=== PATIENT | male | born 1940 | race Caucasian/White ===

== ENCOUNTER 2018-03-08 07:29 | Emergency (ER) | payer BC, MEDICARE ==
[2018-03-08 07:54] VITALS: BP 150/66
[2018-03-08] MEDS ORDERED: methylPREDNISolone 125 MG* 2 ML VIAL IM ONE (08:23)
[2018-03-08] MEDS ORDERED: Ipratropium 0.5MG/2.5ML NEB* 0.5 MG/2.5 ML NEB.SOLN INH ONE (08:23)
[2018-03-08] MEDS ORDERED: Albuterol 2.5 MG/3 ML NEB.SOL* (0.083%) INH ONE (08:23)
--- NOTE | 2018-03-08 08:38 | UC ---
Throat Pain/Nasal Gokul HPI - HPI Summary HPI Summary: pt has been having recurring sinus sx since october of 2017. he has not been able to completely recover though sx appear to have lessened from time to time. sx have been aggravted over the last [address], sinus congestion/pain/aguilar , couch(interferring with sleep and spasms that result in gagging) and sob. pt denies, confusion or unsteady gait. - History of Current Complaint Chief Complaint: UCRespiratory Stated Complaint: CHEST CONGESTION Time Seen by Provider: 03/08/18 08:00 Hx Obtained From: Patient, Family/Training Executive Onset/Duration: Gradual Onset, Lasting Weeks, Worse Since - 2 weeks ago Severity: Moderate Pain Intensity: 0 Associated Signs & Symptoms: Positive: Dysphagia - pain, Wheezing, Sinus Discomfort, Nasal Discharge. Negative: FB Sensation, Drooling, Fever, Vomiting , Rash - Allergies/Home Medications Allergies/Adverse Reactions: Allergies Allergy/AdvReac Type Severity Reaction Status Date / Time Adhesive Tape Allergy Rash Verified 03/08/18 07:47 morphine Allergy Nausea And Verified 03/08/18 07:47 Vomiting Penicillins Allergy Rash Verified 03/08/18 07:47 ranitidine Allergy Rash Verified 03/08/18 07:47 BEES Allergy THROAT Uncoded 03/08/18 07:47 CLOSED, SWELLS UP ENVIRONMENTAL/SEASONAL Allergy MILD Uncoded 03/08/18 07:47 HEADACHE, STUFFY flu serum Allergy myalgias Uncoded 03/08/18 07:47 PMH/Surg Hx/FS Hx/Imm Hx - Additional Past Medical History Additional PMH: bronchitis, pneumonia,memory loss, right foot numbness, herniated disc Endocrine History: Diabetes Cardiovascular History: Hypertension Respiratory History: Bronchitis, Pneumonia - Surgical History Surgical History: Yes Surgery Procedure, Year, and Place: GALL BLADDER REMOVAL, RIGHT KNEE ARTHOSCOPIY. APPENDECTOMY. Umbilical area hernia repair 2013 Dr. Loera [facility] - Social History Occupation: Retired Lives: With Family Alcohol Use: None Substance Use Type: None Smoking Status (MU): Former Smoker Type: Cigarettes Have You Smoked in the Last Year: No When Did the Patient Quit Smoking/Using Tobacco: 40 YEARS - Immunization History Most Recent Influenza Vaccination: has not had Most Recent Tetanus Shot: WITHIN 5 YEARS Review of Systems Constitutional: Other - malaise Eyes: Negative ENT: Sore Throat, Nasal Discharge, Sinus Congestion, Sinus Pain/Tenderness Respiratory: Shortness Of Breath, Cough Cardiovascular: Negative Gastrointestinal: Negative Genitourinary: Negative Musculoskeletal: Negative Neurological: Headache - sinus Psychological: Negative All Other Systems Reviewed And Are Negative: Yes Physical Exam Triage Information Reviewed: Yes Appearance: Well-Appearing, No Pain Distress, Obese Vital Signs: Initial Vital Signs Temp 98.9 F 03/08/18 07:41 Pulse 73 03/08/18 07:41 Resp 20 03/08/18 07:41 BP 150/66 03/08/18 07:41 Pulse Ox 99 03/08/18 07:41 Vital Signs Reviewed: Yes Eyes: Positive: Conjunctiva Clear. Negative: Discharge ENT: Positive: Hearing grossly normal, Pharyngeal erythema, Nasal congestion, Nasal drainage, TMs normal, Sinus tenderness. Negative: Tonsillar swelling, Tonsillar exudate, Trismus, Muffled voice, Hoarse voice Neck: Positive: Supple, Nontender Respiratory: Positive: No respiratory distress, No accessory muscle use, Wheezing - diffuse, all feilds Cardiovascular: Positive: RRR, Murmur:Sys:Grade _?_/ Musculoskeletal Exam: Normal Neurological: Positive: Alert, Muscle Tone Normal Psychological: Positive: Normal Response To Family, Age Appropriate Behavior Skin Exam: Normal Throat Pain/Nasal Course/Dx - Differential Dx/Diagnosis Differential Diagnosis/HQI/PQRI: Sinusitis, URI, Other - bronchospasm, pna, bronchitis Provider Diagnoses: sinusitis, bronchospasm Discharge - Sign-Out/Discharge Documenting (check all that apply): Discharge - Discharge Plan Condition: Stable Disposition: HOME Patient Education Materials: Sinusitis (ED), Bronchospasm (ED) Referrals: Brayden Ray MD [Primary Care Provider] - Additional Instructions: TRY USING THE NETTI POT IN THE MORNINGS DISCUSSED. YOU MUST ALWAYS USE CLEAN WATER. REMEMBER, POSTURE IS AN IMPORTANT FACTOR IN SINUS DRAINAGE. MOVE YOUR NECK, BREATHE. INHALED BRONCHODILATORS: You have received a prescription for an inhaled bronchodilator -- a medication which stimulates the airways in the lung to dilate. This improves the flow of air in asthma, bronchitis, and emphysema. These medicines have some similarity to adrenaline, and can cause similar side effects: shakiness, racing heart, and a sense of nervousness. These side effects decrease with time. Contact your doctor if these side effects are severe. Do not over-use the medicine. Too-frequent use of the inhaler may make it ineffective. Call your doctor if the inhaler is not controlling your symptoms at the prescribed doses. EXPECTORANT MEDICATION: WE SENT IN A SCRIPT FOR MUCINEX SO THAT IT IS EASIER FOR YOU TO PICK THE RIGHT MED AT THE PHARMACY. HOWEVER, YOU CAN ALSO GO TO THE [employer] [facility]OD STORE AND BUY PLAIN GUAIFENESIN WITHOU BINDERS OR FILLERS. An expectorant medicine has been prescribed. This type of drug makes mucous thinner, helping the sinuses, nose, and bronchial tubes to remain free of pus and mucous. Expectorants make a cough less severe and more comfortable, and help infected sinuses drain. In general, antihistamines defeat the purpose of the expectorant by making mucous thicker. They should be avoided unless specifically recommended by your physician. TESSALON PERLES: You have received a prescription for Tessalon Perles (benzonatate). This is a non-narcotic medicine for relief of cough. It usually works in about 15- 20 minutes and lasts around four hours. Tessalon Perles should be swallowed. They should not be chewed or dissolved in the mouth (this can produce temporary numbing of the mouth and choking can occur). If you develop any adverse effects such as wheezing, shortness of breath, hives, rash, itching, or lightheadedness, please return at once. CEPHALOSPORINS: An antibiotic of the cephalosporin class has been prescribed. This type of antibiotic covers a wide variety of infections, including those of the skin, lungs, middle ear, and urinary tract. This antibiotic is somewhat similar to the penicillin family. In rare cases , a person who is allergic to penicillin will also be allergic to this medication. If you have had a severe allergic reaction to penicillin, and have not taken this antibiotic since that time, notify your doctor. Antibiotics which cover many germs ("broad spectrum" antibiotics) are more likely to cause diarrhea or "yeast" infections. Women prone to vaginal yeast problems may suffer an attack after taking this antibiotic. In infants, oral thrush (white spots "stuck" on the cheek) or yeast diaper rash may result. See your doctor if these problems occur. Call the doctor at once if you develop hives, itching, shortness of breath , or lightheadedness. - Billing Disposition and Condition Condition: STABLE Disposition: HOME
== END 2018-03-08 09:59 | disposition home or self-care (01) ==
LOC: UCCORT 07:29
DX: J32.9 Chronic sinusitis, unspecified (principal); J98.01 Acute bronchospasm; E11.9 Type 2 diabetes mellitus without complications; Z79.84 Long term (current) use of oral hypoglycemic drugs; I10 Essential (primary) hypertension; Z88.5 Allergy status to narcotic agent; Z88.0 Allergy status to penicillin; Z88.7 Allergy status to serum and vaccine; Z91.048 Other nonmedicinal substance allergy status; Z87.891 Personal history of nicotine dependence
CPT/HCPCS: 96372; 99202; G0463; J2930

== ENCOUNTER 2019-08-15 14:59 | Observation (INO) | payer BC, MEDICARE ==
[2019-08-15] MEDS ORDERED: NS 0.9% 1000 ML** 1,000 ML IV ONE (15:01)
--- OUTSIDE RECORDS SUMMARY | 2019-08-15 15:15 | XMS REPORT | Continuity of Care Document ---
:1940 External Reference #:[id number] Author Name James Priest Care Team Providers Name Role Phone Brayden Ray MD Primary Care Physician Unavailable Payers Date Identification Numbers Payment Provider Subscriber Effective: 2013 Policy Number: [id number] [employer] Coleenjuan Walsh PayID: [id number] [address] [address] [place] [address] Effective: 2007 Policy Number: [id number] Medicare Alcon Walsh PayID: [id number] [address] [place] [address] Problems Active Problems Provider Date Memory impairment Ivanna Hernandez M.D. Onset: 09/01/2015 Feeling irritable Josef Holly M.D. Onset: 06/10/2018 Family History Date Family Member(s) Observation Comments General Liver Cancer General Lung Cancer General Cancer Father Liver Cancer Mother Lung Cancer First Sister Cancer Social History Type Date Description Comments Sex Unknown Marital Status Lives With Occupation Retired Tobacco Use Start: Unknown End: Former Cigarette Smoker 1 Unknown Pack Daily Smoking Status Reviewed: 06/23/19 Former Cigarette Smoker 1 Pack Daily ETOH Use Rarely consumes alcohol Tobacco Use Start: Unknown End: Patient is a former smoker Unknown Recreational Drug Use Denies Drug Use Exercise Type/Frequency Does not exercise Allergies, Adverse Reactions, Alerts Active Allergies Reaction Severity Comments Date Zantac 10/07/2014 Penicillin 10/07/2014 Flu Virus Vaccine 10/07/2014 Medications Active Medications SIG Qnty Indications Ordering Provider Date Sertraline HCL take two 180tabs Josef Holly, 11/01/2013 25mg Tablets tablets by M.D. mouth once daily Donepezil HCL 1 tab by 90tabs Josef Holly, 09/07/2013 10mg Tablets mouth every M.D. day Lisinopril 1 po qd Unknown 10mg Tablets Omeprazole 1 po every Unknown 20mg Capsules DR other day Metformin HCL ER (Osm) 1 po bid Unknown 1000mg Tablets ER 24HR Hydrochlorothiazide 1 po qd Unknown 25mg Tablets Colcrys As needed Unknown 0.6mg Tablets Tamsulosin HCL 2 by mouth Unknown 0.4mg Capsules every day Multivitamins 1 by mouth Unknown Capsules every day Acetaminophen Extra 2 tabs 3 Unknown Strength times daily 500mg Tablets as needed for pain Atorvastatin Calcium Digiovanna, 10mg MD Brayden Tablets Solifenacin Succinate Adonis Maldonado, 10mg M.D. Tablets History Medications Donepezil HCL 1-2 tabs by mouth 60tabs Ivanna Hernandez, 06/28/2013 - 5mg every day as M.D. 09/07/2013 Tablets directed Hydrocodone-Acetamino Unknown - phen 08/31/2015 5-325mg Tablets Oxybutynin Chloride 1 po qd Unknown - ER 03/14/2016 5mg Tablets ER 24HR Doxycycline Hyclate 1 po bid for 10 Unknown - days-has 5 days 06/07/2018 100mg Capsules left Vital Signs Date Vital Result Comment 06/23/2019 2:44pm Height 66 inches 5'6" Weight 292.00 lb Heart Rate 70 /min BP Systolic 112 mmHg BP Diastolic 64 mmHg BMI (Body Mass Index) 47.1 kg/m2 12/16/2018 3:00pm Height 66 inches 5'6" Weight 280.00 lb Heart Rate 62 /min BP Systolic Sitting 128 mmHg BP Diastolic Sitting 62 mmHg Respiratory Rate 14 /min BMI (Body Mass Index) 45.2 kg/m2 06/10/2018 12:51pm Height 66 inches 5'6" Weight 288.38 lb Heart Rate 80 /min BP Systolic Sitting 116 mmHg BP Diastolic Sitting 62 mmHg Respiratory Rate 16 /min O2 % BldC Oximetry 96 % BMI (Body Mass Index) 46.5 kg/m2 09/22/2017 3:59pm Height 66 inches 5'6" Weight 290.00 lb Heart Rate 68 /min BP Systolic 118 mmHg BP Diastolic 74 mmHg Respiratory Rate 16 /min O2 % BldC Oximetry 96 % BMI (Body Mass Index) 46.8 kg/m2 03/21/2017 3:13pm Height 66 inches 5'6" Heart Rate 64 /min BP Systolic 132 mmHg BP Diastolic 62 mmHg Respiratory Rate 16 /min Pain Level 0 O2 % BldC Oximetry 96 % 09/20/2016 12:31pm Height 66 inches 5'6" Weight 287.12 lb Heart Rate 83 /min BP Systolic 130 mmHg BP Diastolic 72 mmHg BMI (Body Mass Index) 46.3 kg/m2 03/15/2016 3:47pm Height 66 inches 5'6" Weight 292.00 lb Heart Rate 58 /min BP Systolic Sitting 130 mmHg BP Diastolic Sitting 78 mmHg Respiratory Rate 16 /min BMI (Body Mass Index) 47.1 kg/m2 09/01/2015 3:58pm Height 66 inches 5'6" Weight 304.00 lb Heart Rate 72 /min BP Systolic Sitting 132 mmHg BP Diastolic Sitting 80 mmHg Respiratory Rate 16 /min BMI (Body Mass Index) 49.1 kg/m2 10/07/2014 11:43am Height 66 inches 5'6" Weight 298.00 lb Heart Rate 62 /min BP Systolic Sitting 134 mmHg BP Diastolic Sitting 88 mmHg Respiratory Rate 16 /min BMI (Body Mass Index) 48.1 kg/m2 Results Test Date Facility Test Result H/L Range Note Syphilis 06/04/2013 [facility] Syphilis IgG Nonreactive Nonreactive [address] [place] [address] [phone] RPR TNP Nonreactive RPR Titer TNP Pediatric/Maternal NO 1 Warning: A positive result is not useful for establishing a diagnosis of syphilis. In most situations, such a result may reflect a prior treated infection; a negative result can exclude a diagnosis of syphilis except for incubating or early primary disease. Procedures Date Code Description Status 06/04/2013 65433 EEG Recording Awake & Drowsy Completed Encounters Type Date Location Provider Dx Diagnosis Office Visit 12/16/2018 Maren Holly, R41.3 Other amnesia 3:00p [facility] R45.4 Irritability and anger Office Visit 06/10/2018 Maren Holly R41.3 Other amnesia 1:00p [facility] R45.4 Irritability and anger Office Visit 09/22/2017 3:45p [place]/Jalen Breaux R41.3 Other amnesia [facility] R45.4 Irritability and anger Office Visit 03/21/2017 3:15p [facility]/Jalen Breaux R41.3 Other amnesia [facility] R45.4 Irritability and anger Office Visit 09/20/2016 12:30p [facility]/Jalen Breaux R41.3 Other amnesia [facility] Office Visit 03/15/2016 3:45p [facility]/Jalen Breaux R41.3 Other amnesia [facility] F41.9 Anxiety disorder, unspecified Office Visit 09/01/2015 [facility]Jalen Breaux R41.3 Other amnesia 4:00p [facility] Office Visit 10/07/2014 [facility]/Jalen Breaux 780.93 Memory Loss 11:45a [facility] 300.00 Anxiety State Unspec Office Visit 02/28/2014 3:30p [facility]/Jalen Breaux 780.93 Memory Loss [facility] 300.00 Anxiety State Unspec Office Visit 11/01/2013 3:15p [facility]/Jalen Breaux 780.93 Memory Loss [facility] 780.57 Unspecified Sleep Apnea 782.0 Skin Sensation Disturbance 300.00 Anxiety State Unspec Office Visit 06/28/2013 3:15p [facility]/Jalen Breaux 780.93 Memory Loss [facility] Office Visit 05/31/2013 9:00a [facility]/Jalen Breaux 780.93 Memory Loss [facility] 780.57 Unspecified Sleep Apnea Plan of Treatment Future Appointment(s):12/29/2019 2:30 pm - Carlos Rush N.P[facility] at [facility]06/23/2019 - Josef Holly M.D.R41.3 Other amnesiaFollow up:6 months ok with Destin.4 Irritability and anger
--- NOTE | 2019-08-15 15:23 | ED ---
Neurological HPI - HPI Summary HPI Summary: This pt is a 79 Y/O M brought in by EMS to [facility] for neurological deficits that occurred at 1430. He states that his left side became weak and he had tingling all the way down. He denies any numbness on his L side. He states that he doesn t remember what happened prior to arrival at [facility]. His states that he was carrying groceries inside and went to sit down on his recliner. She states that she found him sitting in the chair with his tongue out and had L sided facial droop with his body shaking. She also states that he was unconscious and was unable to be woken. His states that this is his second episode of neurological deficits. He has a PMHx of HTN and DM. - History of Current Complaint Stated Complaint: POSS STROKE PER EMS Time Seen by Provider: 08/15/19 15:01 Hx Obtained From: Patient, Family/Speech Teacher - Onset/Duration: Sudden Onset, Started hours ago - 1, Resolved Timing: Constant Current Severity: None Seizure Severity: Moderate Number of Seizures: 1 - per Neurological Deficit Location: Facial - R sided, RUE, RLE Aggravating: Nothing Alleviating: Nothing Associated Signs and Symptoms: Positive: Negative - chills, Weakness - L sided, Loss of Consciousness - per , Seizure - per , AMS, Impaired Speech. Negative: Nausea/Vomiting, Fever, Chest Pain, Shortness of Breath - Allergy/Home Medications Allergies/Adverse Reactions: Allergies Allergy/AdvReac Type Severity Reaction Status Date / Time Adhesive Tape Allergy Rash Verified 03/08/18 07:47 morphine Allergy Nausea And Verified 03/08/18 07:47 Vomiting Penicillins Allergy Rash Verified 03/08/18 07:47 ranitidine Allergy Rash Verified 03/08/18 07:47 BEES Allergy THROAT Uncoded 03/08/18 07:47 CLOSED, SWELLS UP ENVIRONMENTAL/SEASONAL Allergy MILD Uncoded 03/08/18 07:47 HEADACHE, STUFFY flu serum Allergy myalgias Uncoded 03/08/18 07:47 Home Medications: Home Medications Atorvastatin* [Lipitor*] 10 mg PO 1700 08/15/19 [History Confirmed 08/15/19] Tamsulosin CAP* [Flomax CAP*] 0.4 mg PO DAILY 08/15/19 [History Confirmed ] PMH/Surg Hx/FS Hx/Imm Hx Previously Healthy: Yes Endocrine/Hematology History: Reports: Hx Diabetes Cardiovascular History: Reports: Hx Hypertension, Other Cardiovascular Problems/ Disorders - mitral valve disorder GI History: Reports: Other GI Disorders - BENIGN NEOPLASM OF COLON - Surgical History Surgical History: Yes Surgery Procedure, Year, and Place: GALL BLADDER REMOVAL, RIGHT KNEE ARTHOSCOPIY. APPENDECTOMY. Umbilical area hernia repair 2013 Dr. Loera [facility] - Immunization History Date of Tetanus Vaccine: UTD Date of Influenza Vaccine: UTD Immunizations Up to Date: Yes Infectious Disease History: Reports: Hx Shingles Denies: Traveled Outside the [place] in Last 30 Days - Family History Known Family History: Positive: Renal Disease, Other - CAas - Social History Occupation: Retired Lives: With Family Alcohol Use: None Hx Substance Use: No Substance Use Type: Reports: None Hx Tobacco Use: Yes Smoking Status (MU): Former Smoker Type: Cigarettes Amount Used/How Often: 1/2 PPD Length of Time of Smoking/Using Tobacco: Quit 40 Years ago Have You Smoked in the Last Year: No Household Exposure: No Review of Systems Negative: Fever, Chills Negative: Chest Pain Negative: Shortness Of Breath Negative: Vomiting, Nausea Neurological: Other - R sided facial droop Positive: Weakness - R sided , Slurred Speech All Other Systems Reviewed And Are Negative: Yes Physical Exam - Summary Physical Exam Summary: General: Well-developed, Well-nourished male. No acute distress. HEENT: Normocephalic, Atraumatic. Eyes: Conjuctiva normal, PERRL. Ears: TMs within normal limits. Nares: (-) discharge, (-) erythema. Oropharynx: Clear, mucous membranes moist, (-) exudates. Neck: Soft, FROM, (-) lymphadenopathy, (-) thyromegaly, (-) JVD. Cardiovascular: Normal sinus rhythm, (-) murmur. Lungs: Clear to auscultation bilaterally (-) wheezes, (-) rales, (-) rhonchi. Abdomen: Soft, non-tender, non-distended, (-) organomegaly, normal bowel sounds. Back: (-) CVA tenderness Extremities: No edema. Skin: Warm, dry, (-) rash. Neuro: Alert and oriented x3, R sided facial droop Psychiatric: Mood normal, affect normal. NIH: 0 GCS: 15 Triage Information Reviewed: Yes Vital Signs Reviewed: Yes - [place] Coma Scale Best Eye Response: 4 - Spontaneous Best Motor Response: 6 - Obeys Commands Best Verbal Response: 5 - Oriented Coma Scale Total: 15 Diagnostics - Laboratory Result Diagrams: 08/15/19 15:30 08/15/19 15:30 Lab Statement: Any lab studies that have been ordered have been reviewed, and results considered in the medical decision making process. - CT Brain CT CT Interpretation Completed By: Radiologist Summary of CT Findings: 1. No acute intracranial abnormality by CT. 2. Mild chronic small vessel ischemic disease is likely. ED physician has reviewed this report. - EKG 1513 Cardiac Rate: NL - 77 BPM EKG Rhythm: Sinus Rhythm ST Segment: Normal Ectopy: None Summary of EKG Findings: EKG at 1513 reveals normal sinus rhythm with rate of 77 BPM, no acute changes, no ischemic changes. This EKG was reviewed and interpreted by Dr. Waldron at 1515 08/15/19. NIH Scale - NIH Scale Level of Consciousness: Alert/Keenly Responsive Ask Patient the Month and His/Her Age: Both Correct Ask Pt to Open/Close Eyes and Unit Operator/Release Non-Paretic Hand: Both Correctly Best Gaze (Only Horizontal Eye Movement): Normal Visual Field Testing: No Visual Loss Facial Paresis-Pt to Smile & Close Eyes or Grimace Symmetry: Normal/Symmetrical Motor Function - Right Arm: No Drift-Holds 10 Seconds Motor Function - Left Arm: No Drift-Holds 10 Seconds Motor Function - Right Leg: No Drift-Holds 10 Seconds Motor Function - Left Leg: No Drift-Holds 10 Seconds Limb Ataxia-Must be out of Proportion to Weakness Present: Absent Sensory (Use Pinprick to Test Arms/Legs/Trunk/Face): Normal Best Language (Describe Picture, Name Items): No Aphasia Dysarthria (Read Several Words): Normal Extinction and Inattention: No Abnormality Total Score: 0 Course/Dx - Course Course Of Treatment: This pt is a 79 Y/O M brought in by EMS to [facility] for neurological deficits that occurred at 1430. He states that his Right side became weak and he had tingling all the way down. He denies any numbness on his L side. He states that he doesnt remember what happened prior to arrival at [facility]. His states that he was carrying groceries inside and went to sit down on his recliner. His PE found a slight R sided facial droop and his NIH stoke scale was 0. His Brain CT found the followin. No acute intracranial abnormality by CT. 2. Mild chronic small vessel ischemic disease is likely. EKG at 1513 reveals normal sinus rhythm with rate of 77 BPM, no acute changes, no ischemic changes. Andre neurologist, was consulted at 1534 and recommended admitting the pt for further investigations. He also recomended a Head/Neck CTA and to start or cintue the following medications as of today: Plavix 300 mg, after today it will be 75 mg a day for 30 days, ASA 81 mgs, and lipitor 40 mgs. Pt was accepted to [facility] for further investigations by Dr. De Santiago, Hospitalist, at 1613. - Diagnoses Provider Diagnoses: TIA (transient ischemic attack) - Physician Notifications Discussed Care Of Patient With: Barber De Santiago Time Discussed With Above Provider: 16:09 Instructed by Provider To: Admit As Inpatient Admit/Transition Orders Completed By ED Provider: Yes - Critical Care Time Critical Care Time: 30-74 min Discharge ED - Sign-Out/Discharge Documenting (check all that apply): Patient Departure - admitted Patient Received Moderate/Deep Sedation with Procedure: No - Discharge Plan Condition: Stable Disposition: ADMITTED TO [facility] - Billing Disposition and Condition Condition: STABLE Disposition: Admitted to [facility] - Attestation Statements Document Initiated by Kiko: Yes Documenting Scribe: Bao Gao Provider For Whom Scribe is Documenting (Include Credential): Crystal Waldron MD Scribe Attestation: Bao Alves, scribed for Crystal Waldron MD on 08/15/19 at 1910. Scribe Documentation Reviewed: Yes Provider Attestation: The documentation as recorded by the Bao cobb accurately reflects the service I personally performed and the decisions made by , Crystal Waldron MD Status of Scribe Document: Viewed Consult Consult: Andre neurologist, was consulted at 1534 and recommended admitting the pt for further investigations. He also recomended a Head/Neck CTA and to start or cintue the following medications as of today: Plavix 300 mg, after today it will be 75 mg a day for 30 days, ASA 81 mgs, and lipitor 40 mgs.
[2019-08-15 15:40] LABS: ABS Basophils 0.1 10^3/ul (0-0.2); ABS Eosinophils 0.2 10^3/ul (0-0.6); ABS Lymphocytes 1.3 10^3/ul (1.0-4.8); ABS Monocytes 0.8 10^3/ul (0-0.8); ABS Neutrophils 6.6 10^3/ul (1.5-7.7); Eosinophil % 1.7 %; Hematocrit 30 % (42-52); Hemoglobin 9.9 g/dL (14.0-18.0); Lymphocyte % 14.8 %; Mean Corpuscular HGB Conc 33 g/dL (31-36); Mean Corpuscular Hemoglobin 27 pg (27-31); Mean Corpuscular Volume 83 fL (80-94); Platelet Count 177 10^3/uL (150-450); Red Blood Count 3.64 10^6 /uL (4.18-5.48); Red Cell Distribution Width 15 % (10-15)
[2019-08-15 15:47] LABS: Activated Partial Thrombo Time 31.2 seconds (26.0-38.0); INR 0.99 (0.82-1.09)
[2019-08-15 16:02] LABS: Albumin 3.8 g/dL (3.2-5.2); Albumin/Globulin Ratio 1.5 (1-3); BUN/Creatinine Ratio 19.4 (8-20); Calcium 8.8 mg/dL (8.6-10.3); EGFR African American 38.1 (>60); EGFR Non-African American 31.5 (>60); Globulin 2.6 g/dL (2-4); HDL Cholesterol 23.3 mg/dL; Potassium 4.4 mmol/L (3.5-5.0); Total Bilirubin 0.4 mg/dL (0.2-1.0); Total Protein 6.4 g/dL (6.4-8.9)
[2019-08-15 16:03] LABS: Troponin I 0.03 ng/mL (<0.04)
[2019-08-15] MEDS ORDERED: Iodixanol* (CONTRAST) 320 MG/ML 100 ML SDV IV ONE (16:06)
[2019-08-15] MEDS ORDERED: Acetaminophen TAB* 325 MG PO PRN (17:39)
[2019-08-15] MEDS ORDERED: NS 0.9% 1000 ML** 1,000 ML IV SCH (17:45)
[2019-08-15] MEDS ORDERED: Clopidogrel TAB* 300 MG PO ONE (17:49)
[2019-08-15] MEDS ORDERED: Albuterol HFA INHALER* 8 gm MDI INH PRN (17:53)
[2019-08-15] MEDS ORDERED: Dextrose 50% VIAL 50 ml IV PUSH PRN (18:33)
--- NOTE | 2019-08-15 21:38 | HP ---
CC: Dr. Brayden Baltazar; Dr. Josef Holly * HISTORY AND PHYSICAL: DATE OF ADMISSION: 08/15/19 PRIMARY CARE PROVIDER: Brayden Baltazar MD NEUROLOGIST: Josef Holly MD ATTENDING PHYSICIAN: Barber De Santiago MD * (DICTATED BY AUBRIE DAY NP) CHIEF COMPLAINT: Right-sided facial droop. HISTORY OF PRESENT ILLNESS: Mr. Tena is a 79-year-old male with past medical history of diabetes, Alzheimer's, obstructive sleep apnea, hypertension, and hyperlipidemia, who presented to the emergency room today after an acute episode of a right-sided facial droop. Most of the history is obtained from the patient's as the patient is quite forgetful and did not have good recollection of events from today. She reports that they were carrying groceries into the house. She had just carried a bag in when she went out to grab another bag and when she came inside, he was noted to be sitting in the chair. She noted an obvious right-sided facial droop and she reports that his left leg had violent tremors. She attempted to wake the patient, but was unable to wake him and therefore called 911. When EMS arrived, the patient became more arousable. The patient's son also notes that he appeared very pale during this entire episode. The patient's reports that couple days ago, the patient reported feeling "funny all over." It is not entirely clear how long this lasted, though it sounds as though it lasted hours and potentially the entire day, although there were no obvious neurological deficits during that time. At this point, the patient does not remember any of the events from today. His only complaint at this point is tingling in his left hand and a 7/ 10 headache, which he refers to as mild. In the emergency room, a code li was called and the patient was taken for a stat CT, which was unremarkable. His symptoms were noted to be resolved upon arrival to the emergency room. Telestroke was consulted and Dr. Powell recommended admitting the patient for further evaluation. He additionally recommended a head and neck CTA, a loading dose of Plavix with daily Plavix thereafter and continuing aspirin and atorvastatin. The patient at that point was noted to have an NIH stroke scale of 0. Because of the concern for TIA, the hospitalist service was asked to evaluate for admission. PAST MEDICAL HISTORY: 1. Diabetes mellitus, type 2. 2. Alzheimer's. 3. Obstructive sleep apnea, on CPAP. 4. Hypertension. 5. GERD. 6. Anxiety. 7. Depression. 8. Hyperlipidemia. PAST SURGICAL HISTORY: 1. Cholecystectomy. 2. Knee arthroscopy. 3. Appendectomy. 4. Bilateral cataract removal. 5. Umbilical hernia repair. HOME MEDICATIONS: 1. Albuterol MDI 2 puffs q.4 hours p.r.n. shortness of breath, wheezing. 2. Aspirin 81 mg p.o. daily. 3. Atorvastatin 10 mg p.o. daily. 4. Hydrochlorothiazide 25 mg p.o. daily. 5. Lisinopril 10 mg p.o. daily. 6. Metformin 1000 mg p.o. daily. 7. Omeprazole 20 mg p.o. daily. 8. Sertraline 25 to 50 mg daily. 9. Tamsulosin 0.4 mg p.o. daily. ALLERGIES: MORPHINE, PENICILLIN, RANITIDINE, FLU VACCINE, and ADHESIVE TAPE. FAMILY HISTORY: The patient's reports that the patient had an aunt who had multiple strokes. Otherwise, there is a very significant family history of cancer. SOCIAL HISTORY: The patient denies any tobacco, alcohol, or recreational drug use. He is retired and lives at home with his , Randi. The patient states that his , Randi, and his son, Damian, will be his surrogate decision makers in the event he is unable to make his own decisions. REVIEW OF SYSTEMS: An 11-point review of systems was performed and all the pertinent positive and negative findings are in the HPI. All other systems are negative. PHYSICAL EXAMINATION GENERAL: Mallika is a well-developed, well-nourished, obese white male, lying in bed, in no acute distress, he appears his stated age. VITAL SIGNS: Temp 99.4, heart rate 71, respiratory rate 24, oxygen saturation 95% on room air, and blood pressure 128/63. HEENT: Head is atraumatic, normocephalic. Visual huntley are grossly intact. Pupils are equal and round. Extraocular movements are intact. Mucous membranes are moist. NECK: Full range of motion. Trachea midline. RESPIRATORY: Symmetrical chest expansion. No chest wall deformities. Lungs clear to auscultation throughout. No rhonchi, wheezes, or rubs. CARDIOVASCULAR: Regular rate and rhythm. S1, S2 present. There is a grade 3/ 6 systolic murmur. No JVD. ABDOMEN: Soft, nontender to palpation. Bowel sounds are normoactive throughout. EXTREMITIES: Skin is warm and smooth bilaterally. No edema. No clubbing or cyanosis. Pedal pulses 2+ bilaterally. NEURO: Awake, alert, and oriented to self and place. He is very forgetful. Cranial nerves II through XII grossly intact. Moves all extremities. Motor strength is 5/5 in right upper and lower extremities and 4/5 in left upper and lower extremities. There is decreased sensation to the left hand. DIAGNOSTIC STUDIES AND LABORATORY DATA: WBC 9.0, RBC 3.64, hemoglobin 9.9, hematocrit 30, platelets 177. INR 0.99. Sodium 137, potassium 4.4, chloride 105, carbon dioxide 25, BUN 40, creatinine 2.06, glucose 180. Lactic acid 1.8. Troponin 0.03. Triglycerides 119, total cholesterol 88, LDL 41, HDL 23. Brain CT reads as no acute intracranial abnormality by CT, mild chronic small vessel ischemic disease is likely. Chest x-ray reads as no evidence for acute disease. EKG shows normal sinus rhythm with a rate of 77, QTc 435. This EKG appears consistent with previous EKG on file from 2013. Head CTA reads as a nonocclusive calcified thromboembolus seen in the superior M2 division of the right MCA (this would not account for right-sided facial droop and is likely chronic). No acute occlusive disease, aneurysm, or stenosis in the brain. Intracranial atherosclerotic disease. No acute occlusive disease or significant stenosis in the neck. Mixed, soft and calcified atherosclerotic plaque at the origin of the left vertebral artery. ASSESSMENT AND PLAN: Mr. Tena is a 79-year-old male with past medical history of diabetes, Alzheimer's, sleep apnea, hypertension, hyperlipidemia, who presents to the emergency room today with reports of right-sided neurological deficits and will be admitted observation for: 1. Transient ischemic attack versus seizure. The patient's right-sided facial droop has resolved upon arrival to the emergency room, so this does not consistent with a TIA, although this does not exactly explain the left leg tremors and unresponsiveness during the episode and those are more concerning for seizure activity. Additionally, the patient is now noted to have some left- sided deficits. It is unclear the onset of these symptoms. Regardless, the patient will be worked up for TIA and seizure. I did speak with Dr. Rodriguez, who agreed with giving the patient a loading dose of Plavix now and continuing the patient on dual antiplatelet therapy starting tomorrow with aspirin and Plavix. He additionally recommended an MRI of the brain tomorrow and EEG and a transthoracic echocardiogram. The patient is normotensive at this point, so Dr. Rodriguez did advise that his antihypertensive agents should be held. I will repeat a fasting lipid panel in the morning. I have additionally ordered neuro checks every 4 hours and telemetry monitoring. 2. Acute kidney injury. The patient's creatinine is elevated at 2.06. It is unclear if this is his baseline as the only previous creatinine on records is from 2012 and that was normal at 1.2. It is possible that he may be slightly dry, so I will give him gentle IV hydration and recheck a BMP in the morning. We can attempt to get records tomorrow to figure out his baseline creatinine if necessary. 3. Diabetes. I have ordered an add-on A1c, which is pending at this point. I will hold the patient's metformin and we will check fingersticks a.c., h.s. and give sliding scale lispro as necessary. 4. Obstructive sleep apnea. The patient can use a hospital CPAP, which I have ordered. 5. Hypertension. As mentioned above, the patient is normotensive at this point and I will hold his lisinopril and hydrochlorothiazide to allow for permissive hypertension. 6. Gastroesophageal reflux disease. Continue omeprazole or formulary alternative. 7. Anxiety and depression. Continue sertraline. 8. Hyperlipidemia. Lipid panel shows good control. I will continue atorvastatin at an increased dose of 40 mg instead of 10 per recommendations from telestroke. 9. Alzheimer's. Supportive care. 10. FEN. Again, I will rehydrate the patient with IV fluids as he may be slightly dry at this point. He does not require any electrolyte repletion. I have ordered a heart-healthy diet. 11. Code status. The patient will be a full code. 12. DVT prophylaxis. According to the DVT Risk Assessment, the patient scores a 4 making him high risk. I have ordered subcu heparin. TIME SPENT: Approximately 65 minutes was spent on this admission, greater than half of that time spent [id number] with the patient and his family obtaining my history, performing my physical examination, reviewing the plan of care. This case has been reviewed with my attending, Dr. De Santiago, who is in agreement with the plan of care. AUBRIE DAY, CARPENTRY FOREMAN [id number]/[facility]PS #: [id number] SANGEETHA
[2019-08-15] MEDS: Insulin LISPRO* 1 UNITS UNIT SUBCUT SCH (22:12)
[2019-08-15] MEDS: Heparin VIAL(*) 5000 UNITS/ML VIAL (FIVE THOUSAND) SUBCUT SCH (22:13)
[2019-08-16] MEDS: Heparin VIAL(*) 5000 UNITS/ML VIAL (FIVE THOUSAND) SUBCUT SCH ×3 (06:03→21:44)
[2019-08-16 06:20] LABS: ABS Basophils 0.1 10^3/ul (0-0.2); ABS Eosinophils 0.1 10^3/ul (0-0.6); ABS Lymphocytes 1.6 10^3/ul (1.0-4.8); ABS Monocytes 0.8 10^3/ul (0-0.8); ABS Neutrophils 4.3 10^3/ul (1.5-7.7); Eosinophil % 2.1 %; Hematocrit 29 % (42-52); Hemoglobin 9.5 g/dL (14.0-18.0); Lymphocyte % 23.4 %; Mean Corpuscular HGB Conc 33 g/dL (31-36); Mean Corpuscular Hemoglobin 27 pg (27-31); Mean Corpuscular Volume 83 fL (80-94); Mean Platelet Volume 8.8 fL (7.4-10.4); Platelet Count 181 10^3/uL (150-450); Red Cell Distribution Width 15 % (10-15); White Blood Count 6.9 10^3/uL (3.5-10.8)
[2019-08-16 06:37] LABS: BUN/Creatinine Ratio 20.2 (8-20); Calcium 8.7 mg/dL (8.6-10.3); EGFR African American 42.3 (>60); HDL Cholesterol 21.9 mg/dL; Potassium 4.2 mmol/L (3.5-5.0)
[2019-08-16] MEDS: Insulin LISPRO* 1 UNITS UNIT SUBCUT SCH ×4 (09:29→21:44)
[2019-08-16] MEDS: Aspirin EC TAB* 81 MG TAB.EC PO SCH (09:30)
[2019-08-16] MEDS: Sertraline* 25 MG TAB PO SCH (09:30)
[2019-08-16] MEDS: Tamsulosin CAP* 0.4 MG PO SCH (09:30)
[2019-08-16] MEDS: Pantoprazole TAB * 40 MG TAB PO SCH (09:30)
[2019-08-16] MEDS: Clopidogrel TAB* 75 MG PO SCH (09:31)
[2019-08-16] MEDS ORDERED: Donepezil TAB* 5 MG PO SCH (11:00)
[2019-08-16] MEDS ORDERED: Perflutren Lipid Microsphere* 3 ML VIAL ONE (13:13)
--- NOTE | 2019-08-16 15:18 | ECHO ---
*[facility]* [place] [address] Fax #: [phone] Transthoracic Echocardiogram Patient: Alcon Walsh : 1940 Study Date: 08/16/2019 Age: 79 Gender: M HR: 85 bpm Height: 66 in /167.6 cm BSA: 2.39 m^2 Weight: 303.4 lb /137.9 kg BMI: 49.1 kg/m^2 *Hand Cigar Maker: * Karyna Lee RDCS RN *Referring Physician: * Desire Donnelly *Reading Physician: * Roman Ward MD Indications: TIA. Murmur. History: Murmur. Alzheimer's disease. DYLAN on CPAP. Risk factors: Hypertension. Diabetes mellitus. Morbidly obese. Dyslipidemia. Conclusions Summary: - Left ventricle: The cavity size is normal. Wall thickness is mildly to moderately increased. Systolic function is normal. The estimated ejection fraction is 60-65%. Wall motion is normal; there are no regional wall motion abnormalities. - Right ventricle: Systolic function is normal. - Atrial septum: The image quality was suboptimal and the bubble study was non-diagnostic. Images 109 and 111. A patent foramen ovale cannot be excluded. - Aortic valve: The leaflets are moderately thickened with decreased excursion. The findings are consistent with moderate stenosis. There is no significant regurgitation. The peak systolic velocity is 3.6 m/sec. The mean systolic gradient is 34.0 mm Hg. The peak systolic gradient is 51.0 mm Hg. The LVOT to aortic valve VTI ratio is 0.35. The valve area by the velocity-time integral method is 1.09 cm^2. The valve area by the peak velocity method is 1.05 cm^2. - Tricuspid valve: There is no significant regurgitation. - Pericardium, extracardiac: There is no pericardial effusion. - Pulmonary arteries: Systolic pressure can not be accurately estimated. - Study data: No prior study is available for comparison. Study data: Transthoracic echocardiogram. Procedure: Transthoracic echocardiography was performed. Image quality was fair. The study was technically limited due to body habitus. Intravenous agitated saline was administered. A bubble study was performed on Images 109 and 111. A total of 3 ml of Definity was given IV to enhance endocardial border definition. Complete 2D, spectral Doppler, and color flow Doppler. Location: Bedside. Patient status: Observation. Patient room number: 445-01. No prior study is available for comparison. Rhythm: Normal sinus rhythm. Findings Left ventricle: The cavity size is normal. Wall thickness is mildly to moderately increased. Systolic function is normal. The estimated ejection fraction is 60-65%. Wall motion is normal; there are no regional wall motion abnormalities. Features are consistent with a pseudonormal left ventricular filling pattern, with concomitant abnormal relaxation and increased filling pressure (grade 2 diastolic dysfunction). Right ventricle: The cavity size is normal. Systolic function is normal. Left atrium: The atrium is moderately to severely dilated. Right atrium: The atrium is moderately dilated. Atrial septum: Not well visualized. The image quality was suboptimal and the bubble study was non-diagnostic. Images 109 and 111. A patent foramen ovale cannot be excluded. Mitral valve: The leaflets are mildly thickened. There is no evidence of stenosis. There is trace regurgitation. Aortic valve: Not well visualized. The leaflets are moderately thickened with decreased excursion. The findings are consistent with moderate stenosis. There is no significant regurgitation. Tricuspid valve: Not well visualized. There is no significant regurgitation. Pulmonic valve: Not well visualized. There is trace regurgitation. Aorta: Aortic root: The aortic root is not dilated. Ascending aorta: The ascending aorta is not dilated. Aortic arch: The aortic arch is not visualized. Pericardium: There is no pericardial effusion. Pulmonary arteries: Not well visualized. Systolic pressure can not be accurately estimated. Systemic veins: Inferior vena cava: The vessel is normal in size. There is (< 50%) respiratory change in the IVC dimension. Measurements Left ventricle Value Ref Right atrium Value Ref TRACI, LAX 4.7 cm 4.2 - 5.8 ML dim, ES, A4C (H) 4.7 cm 2.6 - 4.4 ESD, LAX 3.3 cm 2.5 - 4.0 SI dim, ES, A4C (H) 5.8 cm 3.4 - 5.3 FS, LAX 30 % 25 - 43 Estimated RAP 8 mm Hg --------- PW, ED (H) 1.3 cm 0.6 - 1.0 IVS/PW, ED 0.98 Aortic valve Value Ref E', lat randell, TDI (L) 8.1 cm/sec >=10.0 Randell diam, ED 2.0 cm --- ------ E/e', lat randell, 19 Peak v, S 3.6 m/sec ------ --- TDI VTI, S 71.0 cm --------- E', med randell, TDI 7.7 cm/sec >=7.0 Mean grad, S 34.0 mm Hg --- ------ E/e', med randlel, 20 Peak grad, S 51.0 mm Hg ------ --- TDI LVOT/AV, VTI ratio 0.35 --------- E', avg, TDI 7.9 cm/sec HERMINIA, VTI 1.09 cm^2 ------ --- E/e', avg, TDI (H) 19 <=14 HERMINIA, Vmax 1.05 cm^2 --- ------ LVOT Value Ref Mitral valve Value Ref Diam, S 2.00 cm Peak E 1.53 m/sec --------- Area 3.1 cm^2 Peak A 1.02 m/sec --------- Peak tanna, S 1.2 m/sec Decel time 175 ms --------- VTI, S 24.7 cm PHT 73 ms --------- Peak grad, S 6 mm Hg Mean grad, D 4.0 mm Hg --------- Mean grad, S 4 mm Hg Peak grad, D 10.0 mm Hg --------- SV 78 ml Peak E/A ratio 1.5 --------- SV/bsa 33 ml/m^2 MVA, PHT 3.0 cm^2 --------- Ventricular septum Value Ref Pulmonic valve Value Ref IVS, ED (H) 1.3 cm 0.6 - 1.0 Peak v, S 1.1 m/sec --------- Peak grad, S 5.0 mm Hg --------- Right ventricle Value Ref TRACI minor ax, 3.2 cm 1.9 - 3.5 Aortic root Value Ref A4C mid Root diam 2.7 cm <4.4 Left atrium Value Ref Ascending aorta Value Ref AP dim, ES (H) 4.40 cm 3.00 - AAo AP diam, S 3.2 cm --------- 4.00 ML dim, A4C 4.8 cm Inferior vena cava Value Ref SI dim, A4C 6.2 cm Diam 2.0 cm --------- Vol/bsa, ES, 1-p (H) 48 ml/m^2 12 - 37 A4C Vol/bsa, ES, A/L (H) 54 ml/m^2 16 - 34 Legend: (L) and (H) quincy values outside specified reference range. Prepared and electronically signed by Roman Ward MD 08/16/2019 15:17
--- NOTE | 2019-08-16 16:53 | CONS ---
CC: Dr. Brayden Baltazar; Dr. Josef Holly * NEUROLOGY CONSULTATION: DATE OF CONSULT: 08/16/19 LOCATION: He in an inpatient in room 445. REFERRING PROVIDER: Desire Donnelly NP CHIEF COMPLAINT: Episode of unresponsiveness. HISTORY OF PRESENT ILLNESS: Alcon Tena is a 79-year-old right-handed man who was at home with his yesterday after bringing in some groceries, seated in a chair when he suddenly was unresponsive. She had been out of the room for just a few minutes and when she returned, he was "white as a sheet" and clammy. His tongue was hanging out and he was limp. She called 911. When the ambulance attendants got there and tried to get him up out of the chair to a gurney, his legs began shaking. She thought that there might have been weakness on one side of his face, possibly the right side. She is present and gives me direct history, but said she only could see one side of his face. There is an emergency room admitting note indicating perhaps his left side was weak. In any case, by the time he got into the emergency room, he had no focal neurological deficits. She says he was unresponsive for probably 10 to 15 minutes. In the emergency room, he had unremarkable vital signs. His EKG was in sinus rhythm and revealed possible old anterior wall myocardial infarction. He was loaded with Plavix 300 mg and continued on his aspirin, which he is on at home. The patient recalls some parts of the incident, but does not recall the ambulance being there or the ride in. There is no prior history of stroke or transient ischemic attack. He carries a diagnosis of Alzheimer's disease. He has had a heart murmur since "I was a child." His notes that he has been getting short of breath with minimal exertion for the last 2 weeks. PAST MEDICAL HISTORY: Also notable for type 2 diabetes; obstructive sleep apnea , on CPAP; hypertension; depression; hyperlipidemia; gastroesophageal reflux. PAST SURGICAL HISTORY: Notable for cholecystectomy, appendectomy, bilateral cataract extractions, hernia repair. MEDICATIONS: At home consist of: 1. Aspirin 81 mg p.o. daily. 2. Atorvastatin 10 mg p.o. daily. 3. Hydrochlorothiazide 25 mg p.o. daily. 4. Lisinopril 10 mg p.o. daily. 5. Metformin 1000 mg p.o. daily. 6. Omeprazole 20 mg p.o. daily. 7. Sertraline 50 mg p.o. daily. 8. Flomax 0.4 mg p.o. daily. ALLERGIES: He is allergic to MORPHINE, PENICILLIN, RANITIDINE, and ADHESIVE TAPE. SOCIAL HISTORY: He lives with his . REVIEW OF SYSTEMS: Notable for recent shortness of breath. He ambulates independently. His weight has been going up. He denies headache or chest pain currently. He has not had any recent falls. PHYSICAL EXAM: He is obese. Most recent vital signs: Temperature 98.9, blood pressure 146/68, heart rate is in the 70s and regular. Respiratory rate is 18 and oxygen saturation is 95% on room air. Heart is in a regular rhythm with a grade 4/6 systolic murmur loudest at the left lower sternal border, but transmitted broadly. Carotid pulses are present and there is a transmitted murmur in the right carotid, but I do not hear any bruits on either side. Oral mucosa is moist and atraumatic. Lungs reveal a few rales at the right base. Neurological Exam: Pupils are small at about 2.5 mm and react to light to 2 mm. Fundi reveal sharp discs and arteriolar silver wiring. I do not see any embolic phenomenon. Eye movements are normal. Visual huntley are full to confrontation. Facial musculature is notable for questionable mild flattening of the left nasolabial fold. Facial sensation to pin and light touch is diminished on the left side relative to the right. Tongue protrudes in the midline and palate rises symmetrically and there is no dysarthria. Motor exam reveals normal strength proximally and distally in the upper and lower extremities other than mild left hip flexor weakness. [id number] maneuver is clumsy on the left hand than the right. There is no rest tremor. There is no dysmetria on [id number] maneuver otherwise. Sensory exam is notable for diminished pin discrimination in the left arm relative to the right. I did not attempt to ambulate him. Reflexes are very brisk at the knees, trace at the ankles, plantar responses are flexor bilaterally. He has grade 1 upper extremity reflexes. He is alert and oriented to person and place. He recalls some details of yesterday, but in general has clear memory deficits. DIAGNOSTIC STUDIES/LAB DATA: Includes a CT angiogram of the brain, which shows some calcification in the M2 segment of the right middle cerebral artery. In retrospect, the calcium is visible on the initial head CT scan of the brain. An MRI of the brain does not reveal any acute ischemic changes. There are a few nonspecific white matter abnormalities consistent with chronic ischemic disease. Chest x-ray is interpreted as normal. Other laboratory data notable for a CBC with anemia with hemoglobin 9.9 and hematocrit 30, which is a drop from several years ago when it was last checked in the hospital records. Chemistry profile was notable for a creatinine of 1.88 and a BUN of 38. His creatinine was 1.2 on 10/12/13, which is the only other record in our electronic medical record. His hemoglobin A1c at admission yesterday was 7.1%. Cholesterol was 93 this morning and LDL 41. IMPRESSION AND PLAN: Impression is that of a transient ischemic attack, I am also very suspicious he had a cardiac event. He was described as white as a sheet and was generally unresponsive. He did have some shaking when they tried to stand him up, but other than that no tonic or clonic activity was observed by his over about 10 minutes of observation time. He had an EEG earlier today, which I reviewed and which reveals some mild slowing, but no focal or epileptiform abnormalities. His echocardiogram is pending, which is I think going to be very important here. Currently, he is on dual antiplatelet therapy, which I agree with. His blood pressure is acceptable. His lipid profile indicates that he does not need any adjustment in his statins. I will continue to follow him along with you. I have discussed the differential diagnosis with Mr. Tena and his and son who is also present today. [id number]/[facility] #: [id number] SANGEETHA
[2019-08-16] MEDS ORDERED: Atorvastatin* 40 MG TAB PO SCH (17:00)
--- NOTE | 2019-08-16 18:22 | PN ---
Subjective Date of Service: 08/16/19 Interval History: Mr. Walsh is feeling well today. He offers no complaints. No further neurological deficits. No SOB or CP. Family at bedside. They have many questions regarding diagnosis and treatment going forward. No concerns from nursing. Family History: Unchanged from Admission Social History: Unchanged from Admission Past Medical History: Unchanged from Admission Objective Active Medications: Acetaminophen (Tylenol Tab*) 650 mg PO Q4H PRN MILD PAIN or TEMP > 100.4 Albuterol (Ventolin Hfa Inhaler*) 2 puff INH Q4H PRN SOB/WHEEZING Aspirin (Aspirin Ec Tab*) 81 mg PO QAM [facility] Atorvastatin Calcium (Lipitor*) 40 mg PO 1700 [facility] Clopidogrel Bisulfate (Plavix Tab*) 75 mg PO DAILY [facility] Dextrose (Dextrose 50% Vial 50 Ml*) 25 ml IV PUSH .FOR FS < 60 - SS PRN FS < 60 Donepezil HCl (Aricept Tab*) 5 mg PO DAILY [facility] Heparin Sodium (Porcine) (Heparin Vial(*)) 5,000 units SUBCUT Q8HR [facility] Insulin Human Lispro (Humalog*) 0 units SUBCUT ACHS [facility]; Protocol Pantoprazole Sodium (Protonix Tab*) 40 mg PO QAM [facility] Sertraline HCl (Zoloft*) 25 mg PO QAM [facility] Tamsulosin HCl (Flomax Cap*) 0.4 mg PO DAILY [facility] Vital Signs - 8 hr 08/16/19 08/16/19 11:15 15:15 Temperature 98.9 F 98.4 F Pulse Rate 90 86 Respiratory 18 20 Rate Blood Pressure 146/68 131/65 (mmHg) O2 Sat by Pulse 95 94 Oximetry Oxygen Devices in Use Now: None Appearance: Elderly male sitting in chair in NAD Ears/Nose/Mouth/Throat: Mucous Membranes Moist Neck: NL Appearance and Movements; NL JVP, Trachea Midline Respiratory: Symmetrical Chest Expansion and Respiratory Effort, Clear to Auscultation Cardiovascular: NL Sounds; No Murmurs; No JVD, RRR Abdominal: NL Sounds; No Tenderness; No Distention Extremities: No Edema Neurological: NL Muscle Strength and Tone, - - Oriented to self and place Lines/Tubes/Other Access: Clean, Dry and Intact Peripheral IV Nutrition: Taking PO's Result Diagrams: 08/16/19 06:00 08/16/19 06:00 Assess/Plan/Problems-Billing Assessment: Mr. Walsh is a 79 yo M with PMH of DM2, Alzheimer's, DYLAN, HTN, and HLD; who presented to the ED with c/o transient right sided neurological deficits and was admitted for further evaluation. - Patient Problems (1) Transient neurological symptoms Code(s): R29.818 - OTHER SYMPTOMS AND SIGNS INVOLVING THE NERVOUS SYSTEM Comment: - Transient right and left sided deficits - Unclear etiology; differentials include TIA, seizure, cardiac event - EEG unremarkable for seizure activity - MRI brain unremarkable - CTA head/neck shows nonocclusive thromboembolus in the R MCA - Echo shows normal EF, moderate , cannot exclude PFO - Appreciate Neuro consult; recommends treating with dual antiplatelet therapy for [address], [address] Dr. Rodriguez believes this represents a cardiac event rather than a TIA - No events so far on tele, but will montior again overnight; if no cardiac events, will plan for d/c in the morning, but he will likely need long-term Holter monitor - Continue aspirin, Plavix (2) ADELINA (acute kidney injury) Code(s): N17.9 - ACUTE KIDNEY FAILURE, UNSPECIFIED Comment: - Baseline creatinine unknown, but creatinine today is decreased from admission , so there is evidence of ADELINA - Suspect secondary to dehydration - Recheck BMP again in AM (3) Hypertension Code(s): I10 - ESSENTIAL (PRIMARY) HYPERTENSION Comment: - Normotensive - Hold lisinopril and HCTZ; he may need to stop the HCTZ completely as this could have contributed to dehydration and/or possible syncopal event (4) Diabetes mellitus Code(s): E11.9 - TYPE 2 DIABETES MELLITUS WITHOUT COMPLICATIONS Comment: - A1c 7.1% - Hold metformin - Continue Lispro SS (5) Hyperlipidemia Code(s): E78.5 - HYPERLIPIDEMIA, UNSPECIFIED Comment: - Continue atorvastatin (increased from home dose) (6) Alzheimer's disease Code(s): G30.9 - ALZHEIMER'S DISEASE, UNSPECIFIED; F02.80 - DEMENTIA IN OTH DISEASES CLASSD ELSWHR W/O BEHAVRL DISTURB Comment: - Continue Aricept, but dose decreased per recommendation from Neuro as this could induce syncope (7) DYLAN (obstructive sleep apnea) Code(s): G47.33 - OBSTRUCTIVE SLEEP APNEA (ADULT) (PEDIATRIC) Comment: - CPAP at HS (8) GERD (gastroesophageal reflux disease) Code(s): K21.9 - GASTRO-ESOPHAGEAL REFLUX DISEASE WITHOUT ESOPHAGITIS Comment : - Continue pantoprazole (9) Anxiety and depression Code(s): F41.9 - ANXIETY DISORDER, UNSPECIFIED; F32.9 - MAJOR DEPRESSIVE DISORDER, SINGLE EPISODE, UNSPECIFIED Comment: - Continue sertraline (10) BPH (benign prostatic hyperplasia) Code(s): N40.0 - BENIGN PROSTATIC HYPERPLASIA WITHOUT LOWER URINRY TRACT SYMP Comment: - Continue tamsulosin (11) DVT prophylaxis Code(s): Z29.9 - ENCOUNTER FOR PROPHYLACTIC MEASURES, UNSPECIFIED Comment: - Heparin SQ (12) Full code status Code(s): Z78.9 - OTHER SPECIFIED HEALTH STATUS Comment: Status and Disposition: Observation. Anticipate d/c home tomorrow if he remains stable overnight. Attending: Barber De Santiago
--- NOTE | 2019-08-16 20:53 | EEG ---
ELECTROENCEPHALOGRAPHY REPORT: DATE OF STUDY: 08/16/19 REFERRING PROVIDER: Desire Donnelly NP LOCATION: He is an inpatient in room 445. CLINICAL PROBLEM: Episodes of right-sided weakness and left leg shaking. Rule out seizures. MEDICATIONS: Include: 1. Ventolin. 2. Lipitor. 3. Heparin. 4. Flomax. 5. Sertraline. 6. Plavix. 7. Aspirin. 8. Humalog. REPORT: This 19-channel EEG is remarkable for background rhythms consisting of alpha rhythm in the occipital derivations at 9 cycles per second, which is symmetric and suppressed by eye opening. Moderate voltage bifrontal beta- rhythms are noted and also symmetric. There is occasional movement artifact but it is infrequent. Activation procedures are not attempted. There are no clinical events. The patient does not appear to drowse or sleep during the recording. There are no focal, lateralized, or epileptiform abnormalities. CLINICAL IMPRESSION: Normal awake EEG. [id number]/[facility] #: [id number] SANGEETHA
[2019-08-16] MEDS ORDERED: Insulin LISPRO* 1 UNITS UNIT SUBCUT ONE (21:35)
[2019-08-17] MEDS: Heparin VIAL(*) 5000 UNITS/ML VIAL (FIVE THOUSAND) SUBCUT SCH (05:55)
[2019-08-17] MEDS: Sertraline* 25 MG TAB PO SCH (07:55)
[2019-08-17] MEDS: Aspirin EC TAB* 81 MG TAB.EC PO SCH (07:55)
[2019-08-17] MEDS: Insulin LISPRO* 1 UNITS UNIT SUBCUT SCH (07:55)
[2019-08-17] MEDS: Tamsulosin CAP* 0.4 MG PO SCH (07:55)
[2019-08-17] MEDS: Pantoprazole TAB * 40 MG TAB PO SCH (07:55)
[2019-08-17] MEDS: Clopidogrel TAB* 75 MG PO SCH (07:55)
[2019-08-17 08:18] VITALS: BP 131/55
[2019-08-17] MEDS ORDERED: Donepezil TAB* 5 MG PO SCH (09:00)
[2019-08-17 09:20] LABS: ABS Eosinophils 0.1 10^3/ul (0-0.6); ABS Lymphocytes 1.2 10^3/ul (1.0-4.8); ABS Monocytes 0.6 10^3/ul (0-0.8); ABS Neutrophils 4.5 10^3/ul (1.5-7.7); Eosinophil % 1.6 %; Hematocrit 36 % (42-52); Hemoglobin 10.9 g/dL (14.0-18.0); Mean Corpuscular HGB Conc 31 g/dL (31-36); Mean Corpuscular Hemoglobin 27 pg (27-31); Mean Corpuscular Volume 88 fL (80-94); Mean Platelet Volume 8.9 fL (7.4-10.4); Nucleated Red Blood Cells % 0.1; Platelet Count 189 10^3/uL (150-450); Red Blood Count 4.02 10^6 /uL (4.18-5.48); Red Cell Distribution Width 16 % (10-15); White Blood Count 6.4 10^3/uL (3.5-10.8)
[2019-08-17 09:57] LABS: BUN/Creatinine Ratio 18.8 (8-20); Calcium 9.1 mg/dL (8.6-10.3); EGFR African American 49.2 (>60); EGFR Non-African American 40.7 (>60); Potassium 4.2 mmol/L (3.5-5.0)
--- NOTE | 2019-08-17 14:12 | DS ---
CC: Dr. Brayden Baltazar; Dr. Josef Holly; Dr. Damian Rodriguez * DISCHARGE SUMMARY: DATE OF ADMISSION: 08/15/19 DATE OF DISCHARGE: 08/17/19 PRIMARY CARE PROVIDER: Dr. Brayden Baltazar. NEUROLOGIST: Dr. Josef Holly. ATTENDING PHYSICIAN: Dr. Rosalee Araujo.* (DICTATED BY AUBRIE DAY NP) PRIMARY DIAGNOSES: 1. Syncope with transient neurological symptoms, suspected cardiac source. 2. Acute kidney injury. SECONDARY DIAGNOSES: 1. Hypertension. 2. Diabetes mellitus. 3. Hyperlipidemia. 4. Alzheimer's. 5. Obstructive sleep apnea. 6. Gastroesophageal reflux disease. 7. Anxiety. 8. Depression. 9. Benign prostatic hyperplasia. STUDIES WHILE IN THE HOSPITAL: 1. Brain CT on 08/15/19 reads as no acute intracranial abnormality by CT. Mild chronic small vessel ischemic disease is likely. 2. Chest x-ray on 08/15/19 reads as no evidence for acute disease. 3. EKG on 08/15/19 shows normal sinus rhythm with a rate of 77, QTc 435, borderline left axis deviation, no ST changes. 4. Head CTA on 08/15/19 reads as a nonocclusive calcified thromboembolus was seen in the superior M2 division of the right MCA (this would not account for a right- sided facial droop and is likely chronic). No acute occlusive disease, aneurysm, or stenosis in the brain. Intracranial atherosclerotic disease. No acute occlusive disease or significant stenosis in the neck. Mixed soft and calcified atherosclerotic plaque at the origin of the left vertebral artery. 5. Brain MRI on 08/16/19 reads as no acute intracranial abnormality. Mild chronic small vessel ischemic disease. Punctate T2 FLAIR hyperintensity with no other signal alteration in the right cerebral peduncle and right aspect of the rakesh, it is likely artifactual in nature. 6. Transthoracic echocardiogram on 07/16/19 reads as the left ventricular cavity size is normal. Wall thickness is mildly to moderately increased. Systolic function is normal. The estimated ejection fraction is 60% to 65%. Wall motion is normal and there are no regional wall motion abnormalities. Right ventricular systolic function is normal. The image quality of the atrial septum was suboptimal and the bubble study was nondiagnostic. A patent foramen ovale cannot be excluded. The aortic valve leaflets are moderately thickened with decreased excursion. The findings are consistent with moderate aortic stenosis. There is no significant aortic regurgitation. There is no significant tricuspid regurgitation. There is no pericardial effusion. Systolic pressure in the pulmonary arteries cannot be accurately estimated. There is no prior study for comparison. 7. EEG on 08/16/19 reads as normal awake EEG. CONSULTATIONS WHILE IN THE HOSPITAL: 1. Dr. Rodriguez from Neurology on 08/16/19. HISTORY OF PRESENT ILLNESS AND HOSPITAL COURSE: Mr. Tena is a 79-year-old male with past medical history of type 2 diabetes, Alzheimer's, obstructive sleep apnea, hypertension, hyperlipidemia, anxiety, depression, and GERD who presented to the emergency room on 08/15/19 with complaints of a right-sided facial droop. Please see the history and physical by myself for complete summary of the events leading up to this hospitalization. In short, the patient was carrying groceries inside at home with his ; when his walked back inside, she noted that he was sitting in the chair and noted he had a right-sided facial droop. There was some concern that he had some left leg tremors at that time and he was unarousable, so she called EMS. When EMS arrived, the patient was more arousable, but still lethargic. En route, the patient was noted to have right-sided neurological deficits. On arrival to the emergency, these deficits had resolved and the patient was noted to have an NIH Stroke Scale of 0. Telestroke was consulted and the the patient was admitted by the hospitalist service. The presentation was somewhat concerning for transient ischemic attack versus seizure versus syncope as the symptoms were varied and somewhat vague. In the emergency room, the patient was noted to have some very mild left-sided sensory deficits and very mild weakness. I spoke with Dr. Rodriguez on the night of admission and the patient was loaded with Plavix. Dr. Rodriguez did recommend obtaining an MRI, EEG, and echo. Those were all completed and results are noted above. Blood pressure medications were held for permissive hypertension. Dr. Rodriguez saw the patient the following day on 08/16/19 and at that point initially thought as though this represented a transient ischemic attack, though later when we spoke indicated to me that he was actually more concerned about a cardiac event as the patient was unarousable during this episode and was noted to be very pale, especially upon being stood by EMS. Dr. Rodriguez did recommend monitoring the patient for an additional night on telemetry to ensure that there were no telemetry abnormalities. The patient was monitored another night. Telemetry has shown only normal sinus rhythm with rates in the 70s to 90s and occasional PVCs and couplets, though no arrhythmias. I spoke with Dr. Rodriguez again this morning and he felt as though the patient was stable for discharge from his perspective on appropriate therapy and with appropriate followup. The patient was also noted to have some acute kidney injury on admission with a creatinine of 2.06. This was presumed to be from dehydration which similarly could have contributed to a syncopal event. The patient did receive some IV fluids and creatinine yesterday was 1.88. Creatinine today is pending at the time of this dictation, though I will also note that we do not have an accurate baseline for his creatinine as the only previous lab result is from 2012. On exam today, the patient reports feeling well. He did not sleep well overnight due to the hospital environment and is anxious to return home. His is at the bedside and she offers no complaints or concerns. On exam, he has no focal neurological deficits. He is alert and oriented x4 though very forgetful. Heart has a regular rate and rhythm with a grade 3/6 systolic murmur consistent with moderate aortic stenosis found on echo. Lung sounds are clear to auscultation without rhonchi, wheezes, or rales. Abdomen is soft, nontender to palpation. There is no edema. Physical exam was otherwise benign. Mr. Tena is stable for discharge today. Vital signs are as follows: Temp 97.6, heart rate 67, respiratory rate 20, oxygen saturation 95% on room air, blood pressure 131/55. DISCHARGE MEDICATIONS: New medications: 1. Plavix 75 mg p.o. daily. Changed medications: 2. Aricept 5 mg p.o. daily (previously was 10 mg daily). Continued medications: 1. Albuterol MDI 2 puffs q.4 hours p.r.n. shortness of breath or wheezing. 2. Aspirin 81 mg p.o. daily x30 days. 3. Atorvastatin 10 mg p.o. daily. 4. Omeprazole 20 mg p.o. daily. 5. Sertraline 25 to 50 mg p.o. daily. 6. Tamsulosin 0.4 mg p.o. daily. 7. Lisinopril 10 mg p.o. daily. 8. Metformin 1000 mg p.o. daily. Discontinued medications: 1.. Hydrochlorothiazide. DISCHARGE PLAN: Mr. Tena will be discharged to home with his . Activity will be as tolerated. The patient has been instructed to use a rolling walker and our case management department has arranged delivery for a rolling walker to his home. Diet will be heart healthy. Medications as noted above. Again, the patient will need to be on dual antiplatelet therapy for a total of 30 days. After that, he should stop taking aspirin and remain on Plavix indefinitely until otherwise instructed by his neurologist. I did decrease the dose of his Aricept under the recommendation by Dr. Rodriguez as this has been known to contribute to some syncopal events. He can continue his other usual medications as noted above with the exception of hydrochlorothiazide, which I have discontinued. The patient's blood pressure has been under moderately good control while here in the hospital while off antihypertensive agents, so I think he can continue his lisinopril at this time, though hydrochlorothiazide should be discontinued. Again, he was dry on admission and this could be a contributing factor. Regarding his atorvastatin, he has been taking 10 mg daily at home and lipid panel shows good control, so there is no need to increase that dosing. Due to the concern for cardiac event, it is highly recommended that the patient have a long-term Holter monitor and I would advise the primary care provider to arrange for this as soon as possible. He will need to follow up with his primary care provider in the next 4 to 7 days. He additionally should follow up with Dr. Holly in about a month. The patient should return to the emergency room or nearest hospital for any worsening symptoms, shortness of breath, lightheadedness, dizziness, chest discomfort, high fever, chills, night sweats, loss of consciousness, or any other worrisome signs or symptoms. DISCHARGE CONDITION: Stable. DISCHARGE DISPOSITION: Home. This is a summarized report of a complex medical history and hospital stay. For further details, please see the entire medical record. TIME SPENT: Approximately 45 minutes was spent on this discharge. AUBRIE DAY, FLOOR WAXER [id number]/[facility] #: [id number] [facility] CENTERRadu
== END 2019-08-17 10:48 | disposition home or self-care (01) ==
LOC: ED 14:59 → MEDTELE 17:39
PROVIDERS: ADMIT Nurse Practitioner Family; ATTEND Internal Medicine
DX: R55 Syncope and collapse (principal); R29.818 Other symptoms and signs involving the nervous system; N17.9 Acute kidney failure, unspecified; I10 Essential (primary) hypertension; E11.9 Type 2 diabetes mellitus without complications; E78.5 Hyperlipidemia, unspecified; G30.9 Alzheimer's disease, unspecified; F02.80 Dementia in other diseases classified elsewhere, unspecified severity, without behavioral disturbance, psychotic disturbance, mood disturbance, and anxiety; G47.33 Obstructive sleep apnea (adult) (pediatric); K21.9 Gastro-esophageal reflux disease without esophagitis; F41.9 Anxiety disorder, unspecified; F32.9 Major depressive disorder, single episode, unspecified; N40.0 Benign prostatic hyperplasia without lower urinary tract symptoms; Z79.82 Long term (current) use of aspirin; Z79.899 Other long term (current) drug therapy; Z88.0 Allergy status to penicillin
CPT/HCPCS: 36415; 70450; 70496; 70498; 70551; 71045; 80048; 80053; 80061; 83036; 83605; 84484; 85025; 85610; 85730; 93005; 93306; 94660; 95816; 99285; A9270-GY; C8929; G0378; G8978-GP-CI; G8979-GP-CI; J1644; Q9967